=== PATIENT | male | born 1960 ===

== ENCOUNTER 2023-11-30 14:30 | Emergency (ER) | payer MEDICAID ==
[~2023-11-30] VITALS: Ht 167.6 cm; Wt 75.0 kg
[2023-11-30 14:38] VITALS: BP 140/81; PULSE 98; RESP 16; TEMP 98.8; O2SAT 98
[2023-11-30] MEDS: ACETAMINOPHEN 500 MG TABLET PO ONE (15:59)
== END 2023-11-30 16:34 | disposition home or self-care (01) ==
LOC: EMS 14:30
DX: S82.51XA Displaced fracture of medial malleolus of right tibia, initial encounter for closed fracture (principal); I10 Essential (primary) hypertension; E11.9 Type 2 diabetes mellitus without complications; X58.XXXA Exposure to other specified factors, initial encounter; Y93.89 Activity, other specified; Y92.89 Other specified places as the place of occurrence of the external cause; Y99.8 Other external cause status
CPT/HCPCS: 29515; 99283